=== PATIENT | male | born 1970 | race Caucasian/White ===

== ENCOUNTER 2020-03-05 14:55 | Emergency (ER) | payer OTHER ==
[~2020-03-05] VITALS: Ht 188 cm; Wt 111.1 kg
--- NOTE | 2020-03-05 15:18 | NUR ---
PT IS IN ROOM #1A. DR WILKINSON EVALUATED THE PT.
[2020-03-05 15:56] VITALS: BP 135/77
--- NOTE | 2020-03-05 15:56 | NUR ---
PT WAS D/C'd TO HOME. D/C INSTRUCTIONS GIVEN TO THE PT.
[2020-03-06 05:59] LABS: HEPATITIS B SURFACE AB Reactive (.); HEPATITIS B SURFACE AG Negative (Negative)
== END 2020-03-05 15:57 | disposition home or self-care (01) ==
LOC: ER 14:55
DX: Z11.59 Encounter for screening for other viral diseases (principal); S51.851D Open bite of right forearm, subsequent encounter; W50.3XXD Accidental bite by another person, subsequent encounter; Z77.21 Contact with and (suspected) exposure to potentially hazardous body fluids
CPT/HCPCS: 36415; 86704; 86705; 86706; 86803; 87340; 87536; A4663